=== PATIENT | female | born 1985 | race Caucasian/White ===

== ENCOUNTER 2024-12-02 12:09 | Emergency (ER) | payer MEDICAID, OTHER ==
[2024-12-02 12:25] VITALS: BP 163/99; PULSE 90
== END 2024-12-02 13:21 | disposition home or self-care (01) ==
LOC: JP.ED 12:09
DX: T78.3XXA Angioneurotic edema, initial encounter (principal); Z88.8 Allergy status to other drugs, medicaments and biological substances; X58.XXXA Exposure to other specified factors, initial encounter
CPT/HCPCS: 99283